=== PATIENT | female | born 1980 | race Caucasian/White ===

== ENCOUNTER 2017-08-18 11:43 | Emergency (ER) | payer MEDICARE, MEDICAID ==
--- NOTE | 2017-08-18 14:29 | RAD ---
INDICATION: Bilateral swelling left greater than right status post fall. TECHNIQUE: 4 views of both knees were obtained. FINDINGS: The bones are normal alignment. No joint effusion or fracture is seen. Joint spaces appear maintained. There is an oval-shaped lesion present in the proximal metaphysis of the right tibia with a faint sclerotic margin likely representing a benign bony lesion possibly a nonossifying fibroma. IMPRESSION: NO EVIDENCE FOR FRACTURE.
--- NOTE | 2017-08-18 14:39 | UC ---
Jamil Turner Thomas, scribed for Ivette Grubbs DO on 08/18/17 at 1327 . Lower Extremity/Ankle HPI - HPI Summary HPI Summary: The patient is a 36 year old female complaining of bilateral knee pain, L>R, after being tripped up yesterday while walking her dog. Both of her knees hit the pavement. The pain is worse in the left knee compared to the right. She rates the pain 7/10. Movement aggravates the pain. The patient has been limping secondary to the pain. She has abrasions to bilateral knees. The patient denies LOC, hip pain, hand pain, head pain, fever, chills, sweats, nausea, vomiting, diarrhea, and abdominal pain. - History of Current Complaint Chief Complaint: UCLowerExtremity Stated Complaint: BILATERAL KNEE INJURY Time Seen by Provider: 08/18/17 13:17 Hx Obtained From: Patient Hx Last Menstrual Period: 07/29/17 Onset/Duration: Sudden Onset, Lasting Days - 1, Still Present Severity Currently: Moderate Pain Intensity: 7 Pain Scale Used: 0-10 Numeric Aggravating Factor(s): Ambulation Alleviating Factor(s): Nothing Related History: Other - Fell yesterday - Allergies/Home Medications Allergies/Adverse Reactions: Allergies Allergy/AdvReac Type Severity Reaction Status Date / Time No Known Allergies Allergy Verified 08/18/17 12:28 Home Medications: Home Medications cloNIDine HCl [Clonidine HCl ER 0.1 MG] 0.1 mg PO DAILY WITH MEAL 08/18/17 [ History Confirmed 08/18/17] PMH/Surg Hx/FS Hx/Imm Hx Previously Healthy: Yes - NEGATIVE: HTN, DM - Surgical History Surgical History: None Surgery Procedure, Year, and Place: tonsils- as child. gallbladder- 2008 - Family History Known Family History: Positive: Cardiac Disease, Diabetes - Social History Alcohol Use: None Substance Use Type: None Smoking Status (MU): Never Smoked Tobacco Review of Systems Skin: Other - Abrasions Musculoskeletal: Other: - Bilateral knee pain Is Patient Immunocompromised?: No All Other Systems Reviewed And Are Negative: Yes Physical Exam - Summary Physical Exam Summary: Appearance: Well-Appearing, No Pain Distress, Well-Nourished Eyes: conjunctiva clear, no discharge ENT: Hearing grossly normal, no muffled/hoarse voice. Neck: Normal, Supple Respiratory/Lung Sounds: Lungs clear, Normal breath sounds, No respiratory distress, No accessory muscle use Cardiovascular: RRR, No murmur Musculoskeletal: She has marked swelling over the left kneecap. She has pain with medial and lateral stress in the left knee. No ligamentous laxity. Sami 's was difficult to assess. Neurological: Alert, muscle tone normal Psychiatric: Normal, age appropriate behavior Skin: Warm, Dry, Normal color. She has abrasions to bilateral knees. Triage Information Reviewed: Yes Vital Signs: Initial Vital Signs Temp 98.5 F 08/18/17 12:21 Pulse 87 08/18/17 12:21 Resp 18 08/18/17 12:21 BP 105/80 08/18/17 12:21 Pulse Ox 98 08/18/17 12:21 Vital Signs Reviewed: Yes Diagnostics - Radiology Knee XR Xray Interpretation: No Acute Changes - No evidence for fracture Radiology Interpretation Completed By: Radiologist Lower Extremity Course/Dx - Course Course Of Treatment: The patient is a 36 year old female complaining of bilateral knee pain, L>R, after being tripped up yesterday while walking her dog. Knee XR is negative for fracture. Patient will be discharged and will follow up with PCP. The patient is agreeable with this plan. - Differential Dx/Diagnosis Provider Diagnoses: Knee sprain, contusion, abrasion Discharge - Sign-Out/Discharge Documenting (check all that apply): Discharge/Admit/Transfer - Discharge Plan Condition: Stable Disposition: HOME Patient Education Materials: Contusion in Adults (ED), Abrasion (ED) Referrals: Kerry Barber MD [Primary Care Provider] - 5 Days (Follow up for re- evaluation of knee pain in 4-5 days.) The documentation as recorded by the Jamil amrino Thomas accurately reflects the service I personally performed and the decisions made by , Ivette Grubbs DO.
[2017-08-18 14:51] VITALS: BP 131/89
== END 2017-08-18 14:53 | disposition home or self-care (01) ==
LOC: UCEAST 11:43
DX: S83.92XA Sprain of unspecified site of left knee, initial encounter (principal); S83.91XA Sprain of unspecified site of right knee, initial encounter; S80.212A Abrasion, left knee, initial encounter; S80.211A Abrasion, right knee, initial encounter; W01.0XXA Fall on same level from slipping, tripping and stumbling without subsequent striking against object, initial encounter; Y93.K1 Activity, walking an animal; Y92.9 Unspecified place or not applicable
CPT/HCPCS: 84702; 99213; G0463